=== PATIENT | male | born 1995 | race Caucasian/White ===

== ENCOUNTER 2020-03-05 19:23 | Emergency (ER) | payer MEDICAID ==
[~2020-03-05] VITALS: Ht 170.2 cm; Wt 73.0 kg
[2020-03-05] MEDS ORDERED: ONDANSETRON HCL 4MG/2ML INJ IV STA (20:34)
[2020-03-05] MEDS ORDERED: KETOROLAC 30MG/ML VIAL IV STA (20:34)
[2020-03-05] MEDS ORDERED: SODIUM CHLORIDE 0.9% 1,000 ML IV ONE (20:45)
[2020-03-05 20:56] VITALS: BP 110/77
== END 2020-03-05 20:58 | disposition left against medical advice (07) ==
LOC: ER 19:23
DX: R10.31 Right lower quadrant pain (principal); R10.13 Epigastric pain; K62.5 Hemorrhage of anus and rectum
CPT/HCPCS: 93005; 99284; J7030

== ENCOUNTER 2022-06-05 19:34 | Emergency (ER) | payer MEDICAID ==
[~2022-06-05] VITALS: Ht 170.2 cm; Wt 82.0 kg
[2022-06-06] MEDS ORDERED: HYDROCODONE/ACETAMINOPHEN 5/325MG TABLET PO ONE (01:15)
[2022-06-06 01:20] VITALS: BP 127/91
[2022-06-06] MEDS ORDERED: IBUP-2029 MT (01:40)
[2022-06-06] MEDS ORDERED: HYDR-4001 MT (01:40)
== END 2022-06-06 01:55 | disposition home or self-care (01) ==
LOC: ER 19:34
DX: S62.636A Displaced fracture of distal phalanx of right little finger, initial encounter for closed fracture (principal); S09.8XXA Other specified injuries of head, initial encounter; F10.988 Alcohol use, unspecified with other alcohol-induced disorder; Y90.9 Presence of alcohol in blood, level not specified; X58.XXXA Exposure to other specified factors, initial encounter; Y93.89 Activity, other specified; Y92.89 Other specified places as the place of occurrence of the external cause
CPT/HCPCS: 29125; 73120; 99284